=== PATIENT | female | born 2005 | race Hispanic/Latino ===

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

== ENCOUNTER 2024-07-25 12:49 | Emergency (ER) | payer SELFPAY | END 2024-07-25 13:54 | disposition home or self-care (01) | LOC: MADERS 12:49 | DX: J10.1 Influenza due to other identified influenza virus with other respiratory manifestations (principal) | CPT/HCPCS: 99283 ==